=== PATIENT | female | born 1965 | race Caucasian/White ===

== ENCOUNTER 2020-10-02 16:11 | Outpatient (CLI) | payer OTHER, BC | END 2020-10-02 16:12 | disposition home or self-care (01) | LOC: BICRAD 16:11 | PROVIDERS: ATTEND Family Medicine | DX: V89.2XXA Person injured in unspecified motor-vehicle accident, traffic, initial encounter (principal) ==

== ENCOUNTER 2023-04-20 13:06 | Outpatient (CLI) | payer BC | END 2023-04-20 13:07 | disposition home or self-care (01) | LOC: DTY/OP 13:06 | PROVIDERS: ATTEND Family Medicine | DX: E78.5 Hyperlipidemia, unspecified (principal) | CPT/HCPCS: 97802 ==